=== PATIENT | female | born 1950 | race Caucasian/White ===

== ENCOUNTER 2016-06-21 18:53 | Inpatient (IN) | payer MEDICARE ==
[~2016-06-21] VITALS: Ht 154.9 cm; Wt 44.0 kg
--- NOTE | ~2016-06-21 | HP ---
PATIENT'S NAME: KIESHA OCHOA [facility] AGE: 66 Y [address] ROOM: [address] [address] LOCATION: GPCU ADMIT DATE: 06/21/2016 History & Physical DISCHARGE DATE: FAMILY PHYSICIAN: RAFI POSEY MD ATTENDING PHYSICIAN: RAFI POSEY DATE OF SERVICE: CHIEF COMPLAINT: Shortness of breath. HISTORY OF PRESENT ILLNESS: Ms. Shea is a 66-year-old female with a known COPD who has been sick for the last one week with increasing shortness of breath. She has had a cough and some chills. No fever that she knows of but increasing shortness of breath to the point where she just is really struggling to get to catch her breath so she presented to the emergency room. She is on oxygen at home. She has had a decreased appetite. Has two-pillow orthopnea. Denies any edema. Denies any chest pain, which is except that it is very uncomfortable. She has not been around anyone with illness that she is aware of. She sees Dr. Posey for her medical problems. She does require assistance with some of her ADLs. She walks with a walker. She is unable to prepare her own meals, but does her own self cares and dressing. She denies any dizziness or lightheadedness. Denies confusion. In the emergency room, her pH was 7.21 and her pCO2 was 92. After an hour on BiPAP, her pCO2 came down to 83 and her pH up to 7.27. She is alert and oriented. She continues to be dyspneic but is somewhat better. She has received IV steroids, IV antibiotics, and nebulized treatments with DuoNeb and albuterol. She appears to be improving and we will transfer her to PCU rather than ICU at this time. PAST MEDICAL HISTORY: Operations include: Appendectomy, hysterectomy, and knee surgery. Other hospitalizations include: Sepsis from a urinary tract infection. Illnesses include: COPD and hypertension. CURRENT MEDICATIONS: 1. She is on Spiriva 1 inhalation daily. 2. Bystolic 10 mg daily. 3. Symbicort. 4. Amlodipine 10 mg daily. 5. Potassium which she is not taking, and then albuterol p.r.n. ALLERGIES: NONE KNOWN. PATIENT'S NAME: KIESHA OCHOA [facility] AGE: 66 Y [address] ROOM: [place] [address] [facility] ADMIT DATE: 06/21/2016 History & Physical DISCHARGE DATE: FAMILY PHYSICIAN: RAFI POSEY MD ATTENDING PHYSICIAN: RAFI POSEY FAMILY HISTORY: A brother with diabetes. Father with COPD. SOCIAL HISTORY: Quit smoking in 2005, was diagnosed with COPD in 2008. She has been since 1999. She is to live in an apartment. 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 She worked at [employer] and also in [place] for 8 years. She has three sons. She is living with one since August of this year. Another one is in town and is helping. She feels like she has good social support. REVIEW OF SYSTEMS: GENERAL: A very poor appetite. She has gotten weaker. Is extremely short of breath. She thinks she has lost some weight due to poor appetite. ENT: She denies any dizziness or lightheadedness. CARDIOVASCULAR: States it is uncomfortable to breathe, but no chest pain per se. She denies any rapid heartbeat, or heart problems. RESPIRATORY: See HPI. GASTROINTESTINAL: Negative other than the decreased appetite. No nausea, vomiting, diarrhea, or constipation. GENITOURINARY: She does have pressure with urination, but no burning. BREASTS: Negative. 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 MUSCULOSKELETAL: She has arthritis in her left shoulder. She is shorter and does not know if she has osteoporosis or not. PSYCHIATRIC: She does get depressed at times. No suicidal thoughts. She usually sleeps well. DERMATOLOGIC: Negative. PHYSICAL EXAMINATION: GENERAL APPEARANCE: Ms. Shea in a well-developed, very thin 66-year-old female. She is alert and oriented x3 and gives an excellent history. She is quite dyspneic, is able to talk through this BiPAP mask. VITAL SIGNS: Height is not taken. Weight is 41.7 kg. Blood pressure 124/71, pulse 92 and regular, respirations 34, temperature 96.1, and O2 saturation 88% on room air. It is now 100% with BiPAP and oxygen through the BiPAP. HEENT: Pupils are equal. Sclerae clear. Did not check in her mouth, but her lips are dry. CARDIOVASCULAR: Heart tones are very distant. RESPIRATORY: Lung sounds, she has very poor air movement. Bilateral expiratory wheezes and rales. ABDOMEN: Soft. No organomegaly or masses. EXTREMITIES: No pitting edema. Moves all extremities well. LABORATORY WORK: Her pH on admit was 7.22 with a pCO2 of 93, and pO2 of 195 on 4 L. ProBNP is PATIENT'S NAME: KIESHA OCHOA [facility] AGE: 66 Y [address] ROOM: [place] [address] [facility] ADMIT DATE: 06/21/2016 History & Physical DISCHARGE DATE: FAMILY PHYSICIAN: RAFI POSEY MD ATTENDING PHYSICIAN: RAFI POSEY up a little at 464. Liver enzymes and kidney tests are normal. Cardiac enzymes are negative. Sodium 138, potassium 4.0, and glucose initially 172. Urinalysis is negative. White count 15.7, hemoglobin 10.2, and platelets 417,000. PT and PTT are normal. Lactate is 1.5. Procalcitonin is normal. EKG reveals sinus tachycardia. D-dimer is slightly elevated at 0.61. Repeat ABGs after BiPAP; pH is 7.27, pCO2 of 81, pO2 of 47, and sats 76%. Chest x- ray shows no infiltrate, but severe COPD. ASSESSMENT: 1. Acute hypercapnic and hypoxic respiratory failure due to exacerbation of chronic obstructive pulmonary disease. 2. Cachexia. 3. Osteoporosis. 4. Hypertension. PLAN: She is being admitted. We will have her go to PCU as she is improving with the BiPAP. We will keep that going through the night. I have discussed with Velma Sylvester APRN who is on-call for Dr. Stevenson. She will see her in the morning. We will continue IV steroids, IV antibiotics, DuoNeb every 4 hours, and albuterol in between as needed. Keep oxygen to keep her sats above 90% and continue with the BiPAP for now. She does wish to be a full code at this time including being on the ventilator or having CPR done. Prognosis is fair. Dr. Posey will assume care when he is available. MD ILIR MAYA/modl /[id number] D: [id number] T: [id number] HISTORY & PHYSICAL
--- NOTE | ~2016-06-21 | CON ---
PATIENT'S NAME: KIESHA OCHOA [facility] AGE: 66 Y [address] ROOM: [place] [address] LOCATION: GPCU ADMIT DATE: 06/21/2016 Consultation DISCHARGE DATE: 06/27/2016 FAMILY PHYSICIAN: London Posey MD ATTENDING PHYSICIAN: London Posey DATE OF CONSULTATION: 06/22/2016 REFERRING PHYSICIAN: Velma Sylvester APRN HISTORY OF PRESENT ILLNESS: This is a 66-year-old female admitted for COPD exacerbation. She has a history of COPD; chronic respiratory failure, O2 dependent with 2 L per nasal cannula continuously and hypertension who noted increased shortness of breath over the last week with a moderately productive cough with yellow sputum. She denies any nausea, vomiting, fever, or chills. She has no lower extremity edema, chest pain, wheezing, or hemoptysis. She denies any history of asthma, or PE/DVT. She was a former smoker for 35 years one pack per day and quit in 2005. Over this last week, she has noted decrease in her appetite; however, she has not had any weight loss, fatigue, or night sweats. She denies any cardiac history. She typically uses Symbicort twice a day as well as Spiriva at home with albuterol as needed. She has noticed that she has had to increase the use of her albuterol two a few times per day over the last week. PAST MEDICAL HISTORY: Includes COPD and hypertension. ALLERGIES: SEE MAR. MEDICATIONS: See MAR. FAMILY HISTORY: Her brother has diabetes. Her father has COPD. SOCIAL HISTORY: She is and lives in an apartment here in [place]. She is a former smoker one pack per day for 35 years and quit in 2005. REVIEW OF SYSTEMS: A 12-point review of systems is negative except for what is noted in the HPI. PHYSICAL EXAMINATION: VITAL SIGNS: Blood pressure 153/89, pulse 102, respirations 22, temperature 97.3. She is currently on BiPAP 05/06 with sats 92%. PATIENT'S NAME: KIESHA OCHOA [facility] AGE: 66 Y [address] ROOM: [place] [address] LOCATION: GPCU ADMIT DATE: 06/21/2016 Consultation DISCHARGE DATE: 06/27/2016 FAMILY PHYSICIAN: London Posey MD ATTENDING PHYSICIAN: London Posey GENERAL: This is a 66-year-old, frail elderly female, who appears in no acute distress at the time of exam. She is alert and oriented x3. HEENT. Head: Normocephalic and atraumatic. Eyes: Clear. NECK: Supple. No adenopathy. No carotid bruits or JVD. LUNGS: Diminished throughout. HEART: Regular rhythm, but slightly tachycardic, without murmur, gallop, or rub. ABDOMEN: Soft, nontender, nondistended. Bowel sounds x4. EXTREMITIES: No cyanosis, clubbing, or edema. DIAGNOSTIC DATA: Chest x-ray demonstrates emphysema, but no CHF or pneumonia. Initial ABG drawn in the ER showed a pH of 7.22 with pCO2 at 93, PO2 195, bicarb 38. One hour later after BiPAP was placed, repeat ABG showed pH of 7.27, pCO2 of 81, PO2 of 47, and bicarb 37.2. BiPAP was continued and a repeat ABG at midnight showed a pH of 7.30, pCO2 of 70, PO2 134, and bicarb 34.4, lactate was 1.5, proBNP 464. Sodium 138, potassium 4, BUN 18, creatinine 0.9. WBC 15.7, hemoglobin 10.2, hematocrit 35.2, platelets 417. Blood cultures no growth to date. Procalcitonin less than 0.05 and flu swab was negative. ASSESSMENT: 1. [id number] hypercapnic respiratory failure secondary to chronic obstructive pulmonary disease exacerbation. Overall improving and she is feeling much better this morning. She is less short of breath and able to carry on a conversation even with BiPAP on. Her FiO2 is down to 30% now this morning with BiPAP. 2. Chronic obstructive pulmonary disease exacerbation. PLAN: We will wean BiPAP an0d have it used for p.r.n. for increased shortness of breath or work of breathing. We will keep sats 88 to 93%. We will continue with IV steroids with the goal being to potentially adjust the dosage and start to wean tomorrow if she remains stable. We will continue with duo nebs every 4 hours, and albuterol in between, as well as IV antibiotics for now. We will check a sputum culture and respiratory virus panel as well. We will have her start Symbicort 160/4.5 mcg, two puffs b.i.d. with spacer and have PT/OT evaluate and treat for deconditioning. Follow up on lab work in the morning. Thank you for the consult and opportunity to participate in the patient's care. PATIENT'S NAME: KIESHA OCHOA [facility] AGE: 66 Y [address] ROOM: [place] [address] [facility] ADMIT DATE: 06/21/2016 Consultation DISCHARGE DATE: 06/27/2016 FAMILY PHYSICIAN: London Posey MD ATTENDING PHYSICIAN: London Posey APRN FOR FREDY ANNE MD [facility]/modl /[id number] d: 08/11/162031 t: 08/13/16 0741, CONSULTATION REPORT
--- NOTE | ~2016-06-21 | ER ---
PATIENT'S NAME: RK OCHOAEEN Shakeel [facility] AGE: 66 Y [address] ROOM: [place] [address] LOCATION: GPCU ADMIT DATE: 06/21/2016 ER/Outpatient Report DISCHARGE DATE: FAMILY PHYSICIAN: RAFI IVEY MD ATTENDING PHYSICIAN: RAFI IVEY TIME OF ARRIVAL: 1853 hours. TIME SEEN: 1858 hours. IDENTIFICATION: A 66-year-old female. CHIEF COMPLAINT: Shortness of breath. HISTORY OF PRESENT ILLNESS: The patient is a 66-year-old female ago, who has been short of breath for 1 week. It gradually increased in severity to where she is extremely short of breath tonight. She does have a history of COPD, O2 dependent at 2 L per nasal cannula. She has increased her O2 to 4 L. She has had no fever or chills. She has had a cough productive of clear sputum. She has no abdominal pain. No nausea or vomiting. No diarrhea. She does have generalized weakness. ALLERGIES: NO KNOWN DRUG ALLERGIES. CURRENT MEDICATIONS: 1. Symbicort. 2. Spiriva. 3. Amlodipine 10 mg daily. 4. Bystolic 10 mg daily. 5. She is supposed to be taking potassium, but she is not, and she uses albuterol p.r.n. PAST MEDICAL PROBLEMS: COPD, hypertension. Hospitalization for UTI and E. coli sepsis in August 2013, PRIOR SURGERIES: Appendectomy, hysterectomy, and knee surgery. SOCIAL HISTORY: The patient lives here in [place]. She does live alone. Tobacco use, denies currently. She smoked until 2005. She is retired. Alcohol use, denies. PATIENT'S NAME: KIESHA OCHOA [facility] AGE: 66 Y [address] ROOM: [address] [place], [place] [address] LOCATION: GPCU ADMIT DATE: 06/21/2016 ER/Outpatient Report DISCHARGE DATE: FAMILY PHYSICIAN: RAFI IVEY MD ATTENDING PHYSICIAN: RAFI IVEY REVIEW OF SYSTEMS: GENERAL: No fever or chills. She does complain of generalized weakness. HEENT: No headache, no blurred vision, no trouble chewing or swallowing, no sore throat. NECK: No neck pain. CARDIOVASCULAR AND RESPIRATORY: No chest pain. She does have cough and shortness of breath. GASTROINTESTINAL: No abdominal pain. She has decreased appetite. No nausea, vomiting, or diarrhea. GENITOURINARY: No dysuria. MUSCULOSKELETAL: She has arthritis. SKIN: No rashes. ENDOCRINE: No history of diabetes or thyroid abnormalities. HEME: No history of bleeding diathesis or blood clots. FAMILY HISTORY: Mother with diabetes. Father with COPD. PHYSICAL EXAMINATION: VITAL SIGNS: Weight 41.7 kg. Blood pressure 124/71, pulse 92, respirations 34, temperature 96.1, sats 88% on 4 L per nasal cannula. HEENT: Head is normocephalic. Ears: TMs not visualized. Eyes: Pupils equal and reactive to light and accommodation. Extraocular movements intact. Nose: Mucosa pink. No lesions or drainage. Mouth: No lesions. Pharynx benign. NECK: Supple. No lymphadenopathy. No nuchal rigidity. LUNGS: Diminished breath sounds throughout. She has minimal air movement. No wheezes. HEART: Regular rate and rhythm. No murmur, rub, or gallop. ABDOMEN: Bowel sounds present. Soft, nondistended. No hepatosplenomegaly. No palpable masses. No CVA tenderness. SKIN: [place], warm, and dry. No lesions or rashes noted. NEUROLOGIC: The patient is alert and oriented x4. Cranial nerves 2 through 12 are grossly intact. Motor strength 5/5 throughout. Sensation is intact to light touch. No lower extremity edema. No calf tenderness. EMERGENCY DEPARTMENT COURSE: The patient was initially given a DuoNeb aerosol treatment followed by two albuterol treatments and IV was initiated. Solu-Medrol 125 mg IV was given. LABORATORY DATA: Laboratories were obtained. Blood cultures x2. Procalcitonin less than 0.5. Urinalysis is negative. EKG sinus tachycardia, 114 beats per minute. Nonspecific ST-T wave changes are noted inferiorly and laterally. D-dimer is PATIENT'S NAME: KIESHA OCHOA [facility] AGE: 66 Y [address] ROOM: [id number] [facility] [place] [address] LOCATION: GPCU ADMIT DATE: 06/21/2016 ER/Outpatient Report DISCHARGE DATE: FAMILY PHYSICIAN: RAFI IVEY MD ATTENDING PHYSICIAN: RAFI IVEY mildly elevated at 0.61. ABGs; pH 7.22, pCO2 of 93, PO2 of 195 on 4 L per nasal cannula. Repeat ABG after BiPAP; pH 7.27, pCO2 down to 81, pO2 of 47, bicarb 37.2, sats 76%; that was on an FiO2 of 40, which was then increased per Respiratory therapy. Magnesium 1.4, CPK 58, CK-MB 0.7, troponin I less than 0.040. ProBNP elevated at 464. No previous proBNP available for comparison. Sodium 138, potassium 4.0, chloride 99, CO2 of 32, BUN 18, creatinine 0.9, blood sugar 172. Liver enzymes normal. Hemoglobin 10.2, hematocrit 35.2, platelets 417, white blood cell count 15.7 with 64% neutrophils. INR 1.0. She has hypochromic indices. Lactate 1.5. Chest x-ray, one view, changes of COPD, no acute infiltrate, pending radiology over-read. Influenza A and B negative. The patient remained very tachypneic and not moving much air after the initial 3 breathing treatments, so she was placed on BiPAP. Her respiratory therapy. IMPRESSION AND PLAN: 1. Acute hypercapnic hypoxic respiratory failure. 2. Chronic obstructive pulmonary disease. 3. Hypertension. PLAN: For admission to PCU telemetry per Dr. Gallegos to evaluated her in the emergency room. The patient arrived to the emergency room at 1853 hours, was taken to the floor at 2346 hours. 50 minutes of critical care was provided with this patient. The patient was initiated with her elevated white count on Levaquin 750 IV in the ER. RUPALI LUQUE MD CAR/modl /[id number] d: 06/22/1616 t: 06/22/16 0857, OUTPATIENT REPORT
--- NOTE | ~2016-06-21 | DS ---
PATIENT'S NAME: KIESHA OCHOA [facility] AGE: 66 Y [address] ROOM: [place] [address] LOCATION: GPCU ADMIT DATE: 06/21/2016 Discharge Summary DISCHARGE DATE: 06/27/2016 FAMILY PHYSICIAN: Rafi Posey MD ATTENDING PHYSICIAN: Rafi Posey FINAL PRIMARY DISCHARGE DIAGNOSIS: [id number] hypercapnic hypoxic respiratory failure. ADDITIONAL DIAGNOSES: 1. Very severe chronic obstructive pulmonary disease with FEV1 of 27%. 2. Jawsji-as-srftgva disease. 3. Hypokalemia. 4. Ileus, resolved. 5. Underweight with body mass index of 18.6. 6. Essential hypertension. 7. Influenza A positive. CONSULTATIONS: Dr. Stevenson from Pulmonology on 22 June 2016. IMAGING: X-ray of the chest 21 June 2016 showed emphysema. Repeat chest x- ray 24 June 2016 showed no additional changes. Abdominal x-rays on , 24 June showed a possible small ileus and on 26 June 2016 abdomen 2-view showed resolved ileus with normal nonspecific bowel pattern. LABORATORIES: Complete blood count on discharge showed WBC of 13.4, hemoglobin 10.2, hematocrit 34.6, and platelets 345. DISCHARGE PHYSICAL EXAMINATION: VITAL SIGNS: Blood pressure was 134/67, pulse 78, respirations 24, temperature is 98.1, and weight 44 kg. BMI 18.6. GENERAL: An elderly, but pleasant adult female, seated on the edge of the hospital bed. HEENT: Head is normocephalic and atraumatic. Eyes: Conjunctivae clear. Sclerae white. ENT: Mucous membranes moist. Nasal cannula is in place. NECK: Supple. Trachea is midline. HEART: Regular rate and rhythm without murmurs, rubs, clicks, or gallops. LUNGS: Clear to auscultation in all serrano bilaterally, but distant breath sounds. ABDOMEN: Soft, nontender, nondistended. Bowel sounds are positive. EXTREMITIES: Warm and well-perfused. No clubbing, cyanosis, or edema. SKIN: No acute rashes. NEUROLOGIC: Alert, oriented. BRIEF HOSPITAL COURSE: Ms. Ochoa is a 66-year-old female with past medical history as noted above who was admitted to the [facility] PCU from the [facility] Emergency Department for acute respiratory failure. The patient was in her usual state of health when she began experiencing worsening shortness of PATIENT'S NAME: KIESHA OCHOA [facility] AGE: 66 Y [address] ROOM: [address] [place], [place] [address] LOCATION: GPCU ADMIT DATE: 06/21/2016 Discharge Summary DISCHARGE DATE: 06/27/2016 FAMILY PHYSICIAN: Rafi Posey MD ATTENDING PHYSICIAN: Rafi Posey breath and cough. Initial workup did not show that she had influenza A, but rather COPD exacerbation. She was sent to the floor and started on steroids as well as antibiotics. On the floor, the patient had a Pulmonary consultation and required BiPAP. Additionally, she had a respiratory pathogen panel that did show that she was influenza A positive. She was started on Tamiflu as well. She was continued on Solu-Medrol, antibiotics, and Tamiflu for the next 2 days and then switched over to oral antibiotics and oral prednisone. She did require BiPAP on hospital day #3. She improved significantly in her respiratory status, but still was quite short of breath with any movement. The patient did have some abdominal pain and had a small ileus that was noted on June,. It subsequently resolved with light diet. The patient was discharged to transitional care for further rehabilitation. FINAL DISCHARGE PROGNOSIS: Fair. DISCHARGE CONDITION: Stable. DISCHARGE RECOMMENDATIONS: Follow up with Dr. Posey in the Transitional Care Unit. RAFI POSEY MD BAB/modl /[id number] d: 06/28/16250 t: 07/02/16 0809, DISCHARGE SUMMARY
[2016-06-21 19:24] LABS: BASOPHIL % 0.2 %; EOSINOPHIL # 0.3 K/uL (0.0-0.5); EOSINOPHIL % 1.6 %; HEMATOCRIT 35.2 % (33.0-46.0); HEMOGLOBIN 10.2 g/dL (10.0-15.0); IMMATURE GRANULOCYTE # 0.1 K/uL (0.0-0.3); IMMATURE GRANULOCYTE % 0.6 %; LYMPHOCYTE % 25.4 %; MCH 25.8 pg (27.0-34.0); MCV 88.9 fl (83.0-98.0); MONOCYTE # 1.2 K/uL (0.0-1.0); MONOCYTE % 7.7 %; MPV 10.8 fl (9.4-12.4); NEUTROPHIL # (ANC) 10.1 K/uL (1.8-7.8); NEUTROPHIL % 64.5 %; NRBC % 0 /100WBC (0-0.00); PLATELET COUNT 417 K/uL (150-450); RBC 3.96 M/uL (3.50-5.50); RDW-CV 14.3 % (11.9-14.6); WBC 15.7 K/uL (4.0-11.0)
[2016-06-21 19:36] LABS: INR - (THERAPEUTIC) 1.1 (0.9-1.1); PROTIME 11.7 SECONDS (9.6-11.1); PTT 28 SECONDS (25-32)
[2016-06-21 19:47] LABS: ALBUMIN 3.1 gm/dL (3.5-5.0); ALK PHOS 95 IU/L (33-138); ALT 12 IU/L (12-78); AST 13 IU/L (10-40); BLOOD UREA NITROGEN 18 mg/dL (6-24); CALCIUM 8.8 mg/dL (8.5-10.5); CHLORIDE 99 mMol/L (96-110); CO2 32 mMol/L (22-32); CPK 58 IU/L (21-215); CREATININE 0.9 mg/dL (0.5-1.1); ESTIMATED GFR (MDRD EQUATION) > 60; MAGNESIUM 1.4 mg/dL (1.3-2.6); SODIUM 138 mMol/L (135-145); TOTAL PROTEIN 8.3 g/dL (6.0-8.4)
[2016-06-21 19:51] LABS: BICARBONATE 38.1 mmol/L (18.0-23.0); PO2 195 mmHg (80-90)
[2016-06-21 19:54] LABS: BILIRUBIN URINE NEGATIVE (NEGATIVE); BLOOD URINE 10 /UL (NEGATIVE); COLOR URINE YELLOW (YELLOW); GLUCOSE URINE NEGATIVE (NEGATIVE); KETONE URINE NEGATIVE (NEGATIVE); LEUKOCYTES URINE NEGATIVE /UL (NEGATIVE); NITRITE URINE NEGATIVE (NEGATIVE); PROTEIN URINE 30 mg/dL (NEGATIVE); SPEC GRAVITY URINE 1.015 (1.003-1.035); TURBIDITY URINE CLEAR (CLEAR); UROBILINOGEN URINE NORMAL (NORMAL)
[2016-06-21 19:56] LABS: TOTAL BILIRUBIN < 0.1 mg/dL (0.0-1.5)
[2016-06-21 19:58] LABS: PCO2 93 mmHg (35-45)
[2016-06-21 20:01] LABS: BACTERIA URINE NEGATIVE (NEGATIVE); EPITHELIAL URINE 0-2 #/HPF (NEGATIVE); RBC URINE RARE #/HPF (NEGATIVE); WBC URINE 0-2 #/HPF (NEGATIVE)
[2016-06-21 20:02] LABS: WBC CLUMPS URINE RARE (NEGATIVE)
[2016-06-21 20:46] LABS: BICARBONATE 37.2 mmol/L (18.0-23.0)
[2016-06-21 20:55] LABS: PCO2 81 mmHg (35-45)
[2016-06-21 20:56] LABS: PO2 47 mmHg (80-90)
[2016-06-22 01:05] LABS: BICARBONATE 34.4 mmol/L (18.0-23.0); PCO2 70 mmHg (35-45)
[2016-06-22 01:06] LABS: PO2 134 mmHg (80-90)
[2016-06-22] MEDS ORDERED: SYMBICORT 16010.2 GM INH (03:25)
[2016-06-22] MEDS ORDERED: BYSTOLIC10 MG PO (03:28)
[2016-06-22] MEDS ORDERED: SPIRIVA18 MCG INH (03:28)
[2016-06-22] MEDS ORDERED: NORVASC10 MG PO (03:28)
[2016-06-22] MEDS ORDERED: PROVENTIL OR V6.7 GM INH (03:29)
[2016-06-22] MEDS ORDERED: K-TAB 10MEQ10 MEQ PO (11:52)
[2016-06-22] MEDS ORDERED: THERAGRAN-M1 TAB PO (11:53)
[2016-06-22] MEDS ORDERED: TYLENOL EXTRA500 MG PO (11:53)
[2016-06-22 12:25] LABS: BASOPHIL % 0.1 %; HEMATOCRIT 32.8 % (33.0-46.0); HEMOGLOBIN 9.7 g/dL (10.0-15.0); IMMATURE GRANULOCYTE % 0.4 %; LYMPHOCYTE # 1.1 K/uL (0.8-4.0); LYMPHOCYTE % 16.6 %; MCH 25.9 pg (27.0-34.0); MCHC 29.6 gm/dL (32.0-36.5); MCV 87.7 fl (83.0-98.0); MONOCYTE # 0.1 K/uL (0.0-1.0); MONOCYTE % 1.6 %; MPV 10.7 fl (9.4-12.4); NEUTROPHIL # (ANC) 5.4 K/uL (1.8-7.8); NEUTROPHIL % 81.3 %; NRBC % 0 /100WBC (0-0.00); PLATELET COUNT 341 K/uL (150-450); RBC 3.74 M/uL (3.50-5.50); RDW-CV 14.5 % (11.9-14.6); WBC 6.7 K/uL (4.0-11.0)
[2016-06-22 12:36] LABS: ANION GAP 12.3 (10.0-19.0); BLOOD UREA NITROGEN 18 mg/dL (6-24); CALCIUM 9.2 mg/dL (8.5-10.5); CHLORIDE 102 mMol/L (96-110); CO2 29 mMol/L (22-32); CREATININE 0.9 mg/dL (0.5-1.1); ESTIMATED GFR (MDRD EQUATION) > 60; POTASSIUM 4.3 mMol/L (3.7-5.1); SODIUM 139 mMol/L (135-145)
[2016-06-23 05:35] LABS: HEMATOCRIT 32.4 % (33.0-46.0); HEMOGLOBIN 9.5 g/dL (10.0-15.0); IMMATURE GRANULOCYTE % 0.4 %; LYMPHOCYTE # 0.9 K/uL (0.8-4.0); MCH 25.6 pg (27.0-34.0); MCHC 29.3 gm/dL (32.0-36.5); MCV 87.3 fl (83.0-98.0); MONOCYTE # 0.4 K/uL (0.0-1.0); MONOCYTE % 4.5 %; MPV 11.1 fl (9.4-12.4); NEUTROPHIL # (ANC) 6.7 K/uL (1.8-7.8); NEUTROPHIL % 84.1 %; NRBC % 0 /100WBC (0-0.00); PLATELET COUNT 304 K/uL (150-450); RBC 3.71 M/uL (3.50-5.50); RDW-CV 14.5 % (11.9-14.6)
[2016-06-23 05:47] LABS: ALBUMIN 3.3 gm/dL (3.5-5.0); ANION GAP 10.4 (10.0-19.0); BLOOD UREA NITROGEN 16 mg/dL (6-24); CALCIUM 8.6 mg/dL (8.5-10.5); CHLORIDE 95 mMol/L (96-110); CO2 33 mMol/L (22-32); CREATININE 0.7 mg/dL (0.5-1.1); ESTIMATED GFR (MDRD EQUATION) > 60; PHOSPHORUS 3.2 mg/dL (2.5-4.9); POTASSIUM 3.4 mMol/L (3.7-5.1); SODIUM 135 mMol/L (135-145)
[2016-06-24 09:16] LABS: HEMATOCRIT 34.6 % (33.0-46.0); HEMOGLOBIN 10.1 g/dL (10.0-15.0); IMMATURE GRANULOCYTE # 0.1 K/uL (0.0-0.3); IMMATURE GRANULOCYTE % 0.8 %; LYMPHOCYTE # 0.7 K/uL (0.8-4.0); LYMPHOCYTE % 5.1 %; MCH 25.7 pg (27.0-34.0); MCHC 29.2 gm/dL (32.0-36.5); MONOCYTE # 0.5 K/uL (0.0-1.0); MONOCYTE % 3.2 %; MPV 11.1 fl (9.4-12.4); NEUTROPHIL # (ANC) 13.2 K/uL (1.8-7.8); NEUTROPHIL % 90.9 %; NRBC % 0 /100WBC (0-0.00); RBC 3.93 M/uL (3.50-5.50); RDW-CV 14.6 % (11.9-14.6); WBC 14.5 K/uL (4.0-11.0)
[2016-06-24 09:24] LABS: PLATELET COUNT 381 K/uL (150-450)
[2016-06-24 09:34] LABS: ALBUMIN 3.4 gm/dL (3.5-5.0); ALK PHOS 85 IU/L (33-138); ALT 18 IU/L (12-78); AST 20 IU/L (10-40); BLOOD UREA NITROGEN 16 mg/dL (6-24); CALCIUM 8.8 mg/dL (8.5-10.5); CHLORIDE 96 mMol/L (96-110); CO2 31 mMol/L (22-32); CREATININE 0.8 mg/dL (0.5-1.1); ESTIMATED GFR (MDRD EQUATION) > 60; SODIUM 134 mMol/L (135-145); TOTAL BILIRUBIN 0.2 mg/dL (0.0-1.5); TOTAL PROTEIN 8.1 g/dL (6.0-8.4)
[2016-06-24 11:27] LABS: BICARBONATE 37.4 mmol/L (18.0-23.0)
[2016-06-24 11:32] LABS: PCO2 66 mmHg (35-45); PO2 60 mmHg (80-90)
[2016-06-25 03:24] LABS: HEMATOCRIT 32.9 % (33.0-46.0); HEMOGLOBIN 9.6 g/dL (10.0-15.0); IMMATURE GRANULOCYTE # 0.1 K/uL (0.0-0.3); IMMATURE GRANULOCYTE % 0.7 %; LYMPHOCYTE # 0.5 K/uL (0.8-4.0); LYMPHOCYTE % 4.7 %; MCH 25.3 pg (27.0-34.0); MCHC 29.2 gm/dL (32.0-36.5); MCV 86.8 fl (83.0-98.0); MONOCYTE # 0.4 K/uL (0.0-1.0); MONOCYTE % 3.1 %; MPV 11.3 fl (9.4-12.4); NEUTROPHIL # (ANC) 10.5 K/uL (1.8-7.8); NEUTROPHIL % 91.5 %; NRBC % 0 /100WBC (0-0.00); PLATELET COUNT 315 K/uL (150-450); RBC 3.79 M/uL (3.50-5.50); RDW-CV 14.6 % (11.9-14.6); WBC 11.5 K/uL (4.0-11.0)
[2016-06-25 03:34] LABS: ALBUMIN 3.3 gm/dL (3.5-5.0); ALK PHOS 81 IU/L (33-138); ALT 22 IU/L (12-78); AST 14 IU/L (10-40); BLOOD UREA NITROGEN 24 mg/dL (6-24); CALCIUM 9.1 mg/dL (8.5-10.5); CHLORIDE 94 mMol/L (96-110); CREATININE 0.7 mg/dL (0.5-1.1); ESTIMATED GFR (MDRD EQUATION) > 60; POTASSIUM 3.9 mMol/L (3.7-5.1); SODIUM 136 mMol/L (135-145); TOTAL PROTEIN 7.8 g/dL (6.0-8.4)
[2016-06-25 03:37] LABS: ANION GAP 10.9 (10.0-19.0); CO2 35 mMol/L (22-32); TOTAL BILIRUBIN 0.1 mg/dL (0.0-1.5)
[2016-06-26 05:00] LABS: BASOPHIL % 0.1 %; HEMATOCRIT 33.7 % (33.0-46.0); HEMOGLOBIN 9.9 g/dL (10.0-15.0); IMMATURE GRANULOCYTE # 0.2 K/uL (0.0-0.3); IMMATURE GRANULOCYTE % 1.3 %; LYMPHOCYTE # 0.7 K/uL (0.8-4.0); LYMPHOCYTE % 5.7 %; MCH 25.6 pg (27.0-34.0); MCHC 29.4 gm/dL (32.0-36.5); MCV 87.1 fl (83.0-98.0); MONOCYTE # 1.2 K/uL (0.0-1.0); MONOCYTE % 9.9 %; MPV 11.5 fl (9.4-12.4); NEUTROPHIL # (ANC) 9.9 K/uL (1.8-7.8); NRBC % 0 /100WBC (0-0.00); PLATELET COUNT 303 K/uL (150-450); RBC 3.87 M/uL (3.50-5.50); RDW-CV 14.9 % (11.9-14.6); WBC 11.9 K/uL (4.0-11.0)
[2016-06-26 05:21] LABS: ALBUMIN 3.2 gm/dL (3.5-5.0); ALK PHOS 79 IU/L (33-138); ALT 20 IU/L (12-78); ANION GAP 10.2 (10.0-19.0); AST 14 IU/L (10-40); BLOOD UREA NITROGEN 28 mg/dL (6-24); CALCIUM 9.2 mg/dL (8.5-10.5); CHLORIDE 94 mMol/L (96-110); CREATININE 0.7 mg/dL (0.5-1.1); ESTIMATED GFR (MDRD EQUATION) > 60; POTASSIUM 4.2 mMol/L (3.7-5.1); SODIUM 138 mMol/L (135-145); TOTAL BILIRUBIN 0.1 mg/dL (0.0-1.5); TOTAL PROTEIN 7.3 g/dL (6.0-8.4)
[2016-06-26 05:28] LABS: CO2 38 mMol/L (22-32)
[2016-06-27 04:10] LABS: BASOPHIL % 0.1 %; EOSINOPHIL % 0.1 %; HEMATOCRIT 34.6 % (33.0-46.0); HEMOGLOBIN 10.2 g/dL (10.0-15.0); IMMATURE GRANULOCYTE # 0.2 K/uL (0.0-0.3); IMMATURE GRANULOCYTE % 1.3 %; LYMPHOCYTE % 7.6 %; MCH 25.7 pg (27.0-34.0); MCHC 29.5 gm/dL (32.0-36.5); MCV 87.2 fl (83.0-98.0); MONOCYTE # 1.4 K/uL (0.0-1.0); MONOCYTE % 10.6 %; MPV 11.8 fl (9.4-12.4); NEUTROPHIL # (ANC) 10.8 K/uL (1.8-7.8); NEUTROPHIL % 80.3 %; NRBC % 0 /100WBC (0-0.00); PLATELET COUNT 345 K/uL (150-450); RBC 3.97 M/uL (3.50-5.50); RDW-CV 15.3 % (11.9-14.6); WBC 13.4 K/uL (4.0-11.0)
[2016-06-27 04:22] LABS: ANION GAP 10.3 (10.0-19.0); BLOOD UREA NITROGEN 32 mg/dL (6-24); CALCIUM 9.2 mg/dL (8.5-10.5); CHLORIDE 94 mMol/L (96-110); CREATININE 0.8 mg/dL (0.5-1.1); ESTIMATED GFR (MDRD EQUATION) > 60; POTASSIUM 4.3 mMol/L (3.7-5.1); SODIUM 140 mMol/L (135-145)
[2016-06-27 04:23] LABS: CO2 40 mMol/L (22-32)
[2016-06-27 09:44] LABS: BICARBONATE 48.4 mmol/L (18.0-23.0); PCO2 68 mmHg (35-45); PO2 71 mmHg (80-90)
[2016-07-11] MEDS ORDERED: DIAMOX250 MG PO (09:49)
[2016-07-11] MEDS ORDERED: ASPIRIN325 MG PO (09:49)
[2016-07-11] MEDS ORDERED: DUONEB INH (09:52)
== END 2016-06-27 12:25 | DRG 189 ==
LOC: GMED 18:53 → GPCU 22:52
PROVIDERS: Family Medicine; Internal Medicine Critical Care Medicine; Nurse Practitioner; Thoracic Surgery (Cardiothoracic Vascular Surgery); ADMIT Family Medicine
DX: J96.22 Acute and chronic respiratory failure with hypercapnia (principal); R64 Cachexia; E87.3 Alkalosis; J44.1 Chronic obstructive pulmonary disease with (acute) exacerbation; K56.7 Ileus, unspecified; Z68.1 Body mass index [BMI] 19.9 or less, adult; J96.21 Acute and chronic respiratory failure with hypoxia; I10 Essential (primary) hypertension; Z87.891 Personal history of nicotine dependence; M81.0 Age-related osteoporosis without current pathological fracture; R63.6 Underweight; E87.6 Hypokalemia; Z23 Encounter for immunization; D63.8 Anemia in other chronic diseases classified elsewhere; J10.1 Influenza due to other identified influenza virus with other respiratory manifestations
CPT/HCPCS: C9113; J1650; J1956; J2060; J2930; J7030; J7512

== ENCOUNTER → 2017-01-02 | Outpatient (CLI) | payer MEDICARE ==
[~2017-01-02] MED LIST: ASPIRIN325 MG PO; BYSTOLIC10 MG PO; DIAMOX250 MG PO; DUONEB INH; K-TAB 10MEQ10 MEQ PO; NORVASC10 MG PO; PROVENTIL OR V6.7 GM INH; SPIRIVA18 MCG INH; SYMBICORT 16010.2 GM INH; THERAGRAN-M1 TAB PO; TYLENOL EXTRA500 MG PO
== END | disposition disaster alternative care site (69) ==
LOC: GBCOE 12:06
DX: Z12.31 Encounter for screening mammogram for malignant neoplasm of breast (principal); Z00.00 Encounter for general adult medical examination without abnormal findings; M81.8 Other osteoporosis without current pathological fracture
CPT/HCPCS: G0202